=== PATIENT | male | born 1995 | race Two or more races ===

== ENCOUNTER 2016-08-14 20:26 | Emergency (ER) | payer OTHER | END 2016-08-14 21:23 | disposition home or self-care (01) | LOC: ED 20:26 | DX: S61.412A Laceration without foreign body of left hand, initial encounter (principal); W27.8XXA Contact with other nonpowered hand tool, initial encounter; Y93.9 Activity, unspecified; Y92.69 Other specified industrial and construction area as the place of occurrence of the external cause; Y99.0 Civilian activity done for income or pay ==